=== PATIENT | male | born 1965 | race Caucasian/White ===

== ENCOUNTER 2017-08-06 12:29 | Emergency (ER) | payer OTHER ==
[~2017-08-06] VITALS: Ht 172.7 cm; Wt 84.8 kg
[2017-08-07] MEDS ORDERED: ALBUTEROL2.5 MG/3 M IH (06:34)
[2017-08-07] MEDS ORDERED: ZYNCOF 20-400120 ML PO (06:34)
[2017-08-07] MEDS ORDERED: SINGULAIR 10MG10 MG PO (06:34)
[2017-08-07] MEDS ORDERED: ZITHROMAX500 MG PO (06:35)
== END 2017-08-07 06:44 | disposition home or self-care (01) ==
LOC: ER 12:29
DX: J45.998 Other asthma (principal)

== ENCOUNTER 2018-03-16 11:52 | Emergency (ER) | payer OTHER ==
[~2018-03-16] VITALS: Ht 172.7 cm; Wt 84.8 kg
[~2018-03-16 11:52] MED LIST: ALBUTEROL2.5 MG/3 M IH; SINGULAIR 10MG10 MG PO; ZITHROMAX500 MG PO; ZYNCOF 20-400120 ML PO
[2018-03-16] MEDS ORDERED: ALBUTEROL1.25 MG/3 IH (16:29)
[2018-03-16] MEDS ORDERED: BUDESONIDE0.5 MG/2 M IH (16:29)
== END 2018-03-16 17:29 | disposition home or self-care (01) ==
LOC: ER 11:52
DX: J45.901 Unspecified asthma with (acute) exacerbation (principal)

== ENCOUNTER 2019-05-10 18:22 | Emergency (ER) | payer OTHER ==
[~2019-05-10] VITALS: Ht 172.7 cm; Wt 84.4 kg
[~2019-05-10 18:22] MED LIST changes: +ALBUTEROL1.25 MG/3 IH; +BUDESONIDE0.5 MG/2 M IH
[2019-05-10] MEDS ORDERED: FORTAMET500 MG (18:47)
== END 2019-05-10 23:25 | disposition home or self-care (01) ==
LOC: ER 18:22
DX: B34.9 Viral infection, unspecified (principal)

== ENCOUNTER 2020-11-21 07:14 | Day surgery (SDC) | payer OTHER ==
[~2020-11-21 07:14] MED LIST changes: +FORTAMET500 MG
== END 2020-11-21 10:30 | disposition home or self-care (01) ==
LOC: AMB-ENDOS 07:14
PROVIDERS: ATTEND Surgery
DX: K62.89 Other specified diseases of anus and rectum (principal); K64.8 Other hemorrhoids; Z20.822 Contact with and (suspected) exposure to COVID-19

== ENCOUNTER 2022-08-12 16:37 | Emergency (ER) | payer OTHER ==
[~2022-08-12] VITALS: Ht 172.7 cm; Wt 90.3 kg
== END 2022-08-12 20:18 | disposition home or self-care (01) ==
LOC: ER 16:37
DX: K64.9 Unspecified hemorrhoids (principal); E11.9 Type 2 diabetes mellitus without complications; Z88.8 Allergy status to other drugs, medicaments and biological substances

== ENCOUNTER 2022-11-27 06:43 | Outpatient (CLI) | payer OTHER ==
[2022-11-27 07:43] LABS: HEMOGLOBIN 16.1 g/dL (13-16.00); MEAN CELL VOLUME 82.2 fL (80.0-100.00); MEAN CORPUSCULAR HEMOGLOBIN 27.6 pg (27.00-32.0); MEAN CORPUSCULAR HGB CONC 33.6 g/dl (32.0-36.0); PLATELET COUNT 237 K/uL (150-450); RED BLOOD COUNT 5.83 M/uL (4.00-6.00); RED CELL DISTRIBUTION WIDTH 13.3 % (11.5-14.5)
[2022-11-27 08:25] LABS: PARTIAL THROMBOPLASTIN TIME 27.2 SECONDS (22.0-34.0)
[2022-11-27 08:42] LABS: ALBUMIN 3.8 gm/dL (3.4-5.0); BILIRUBIN TOTAL 0.47 mg/dL (0.3-1.2); CALCIUM 9.1 mg/dL (8.5-10.1); CREATININE SERUM 1.04 mg/dL (0.70-1.30); GFR 74.42; GLOBULINA 3.8 G/DL (2.4-3.5); POTASSIUM 4.1 mEq/L (3.5-5.1); TOTAL PROTEIN 7.6 gm/dL (6.4-8.2)
== END 2022-11-27 07:26 | disposition home or self-care (01) ==
LOC: LAB 06:43
PROVIDERS: ATTEND Surgery
DX: R19.4 Change in bowel habit (principal); R19.7 Diarrhea, unspecified; K52.3 Indeterminate colitis; K64.3 Fourth degree hemorrhoids; A06.1 Chronic intestinal amebiasis; Z88.6 Allergy status to analgesic agent